=== PATIENT | female | born 1975 | race Caucasian/White ===

== ENCOUNTER → 2018-10-02 | Outpatient (CLI) | payer OTHER ==
--- NOTE | 2018-10-02 10:19 | RAD ---
Three-view left shoulder dated 10/02/2018. No comparison available. CLINICAL INDICATION: History of fracture 02/02/2018 status post surgery. FINDINGS: 3 views left shoulder show an oblique fracture through the proximal one third shaft, incompletely united. There is mild displacement and angulation at the fracture site. The fracture is stabilized by an anterior grade intramedullary nail with interlocking screws at the proximal humerus. No significant radiolucency along the screw margins. Glenohumeral alignment is anatomic. There is mild hypertrophic change of the AC joint. IMPRESSION: Incompletely united fracture of the proximal left humerus status post ORIF. Electronically signed by: Jonathon Bhandari MD (10/02/2018 10:16 AM) [id number]
== END | disposition home or self-care (01) ==
LOC: RAD 09:36
PROVIDERS: ATTEND Surgery
DX: S42.292G Other displaced fracture of upper end of left humerus, subsequent encounter for fracture with delayed healing (principal); X58.XXXD Exposure to other specified factors, subsequent encounter
CPT/HCPCS: 73030